=== PATIENT | female | born 1990 | race Caucasian/White ===

== ENCOUNTER 2017-06-03 17:59 | Emergency (ER) | payer MEDICAID ==
[2017-06-03] MEDS ORDERED: TERC.4%V VAGINAL (19:25)
--- NOTE | 2017-06-03 19:25 | PD ---
HPI Chief Complaint Abdominal pain pelvic pressure vaginal discharge Date Seen: Jun 03, 2017 Time Seen: 19:20 Travel History International Travel<30 Days: No Contact w/Intl Traveler<30Days: No Known Affected Area: No History of Present Illness HPI Patient is 26-year-old white female at 33 weeks sees a kettle cleaner in [place] for care and presents complaining of abdominal pain and pelvic pressure. Also complains of a yellow thickish discharge. She denies itching or odor. heart tones are reactive and she is not agustín regularly Weeks Gestation: 33 Para: 0 : 1 History Social History Alcohol Use: No Tobacco Use: No Substance Abuse: No Review of Systems General / Constitutional: No: Fever, Weight Gain, Chills, Other Eyes: No: Diploplia, Blurred Vision, Visual changes, Pain, Photophobia HENT: No: Headaches, Vertigo, Lightheadedness Cardiovascular: No: Irregular Rhythm, Chest Pain or Discomfort, Palpitations, Tachycardia, Syncope, Varicosities, Edema, Cyanosis Respiratory: No: Cough, Short of Breath, Other Gastrointestinal: Abdominal Pain, No: Nausea, Vomiting, Diarrhea Genitourinary: Discharge, No: Decreased Urinary Output, Oliguria Musculoskeletal: No: Limited ROM, Weakness, Cramping, Edema, Pain Skin: No Rash, No Itching, No Dryness, No Lumps, No Change in Pigmentation, No Change in Nails, No Alopecia, No Lesions Neurologic: No: Weakness, Dizziness, Syncope, Focal Abnormalities, Coordination Problem, Headache, Slurred Speech, Seizures Psychiatric: No: Depression, Suicidal Ideations, Homicidal Ideation Endocrine: No: Heat Intolerance, Cold Intolerance, Polydipsia, Polyuria, Other Physical Exam Narrative GENERAL: Well-nourished, well-developed patient. SKIN: Warm and dry. HEAD: Normocephalic and atraumatic. EYES: No scleral icterus. No injection or drainage. ENT: No nasal drainage noted. Mucous membranes pink. Airway patent. NECK: Supple, trachea midline. No JVD. CARDIOVASCULAR: Regular rate and rhythm without murmurs, gallops, or rubs. RESPIRATORY: Breath sounds equal bilaterally. No accessory muscle use. BREASTS: Bilateral exam showed no masses , no retractions, no nipple discharge. ABDOMEN/GI: Abdomen soft, non-tender, bowel sounds present, no rebound, no guarding Gravid to [-33] weeks size Fundal Height: [33-] GENITOURINARY: External Genitalia: intact and normal in appearance Speculum exam done--yeast seen on exam of the vagina with a classic cottage cheese type discharge Cervix: [Posterior-] Dilatation: [Closed-] Effacement: [-Thick] Station: [-3] ] Membranes: [intact ] Uterine Contractions: [No regular contraction-] FHT's: Category: [-1] Baseline: [-133] Reactive: [-R] Variability: [-mod] Decels: [-0] EXTREMITIES: No cyanosis or edema. BACK: Nontender without obvious deformity. No CVA tenderness. NEUROLOGICAL: Awake and alert. Motor and sensory grossly within normal limits. Five out of 5 muscle strength in all muscle groups. Normal speech. MDM Interpretation(s) Patient is 26-year-old white female at 33 weeks who sees a kettle cleaner at [place] for care presents complaining of abdominal pain pelvic pressure and a vaginal discharge. On exam this is a classic yeast infection in the vagina and this was very obvious on speculum exam, heart tones are reactive she is having no regular contractions cervix is closed Plan Plan Terazol 7 cream nightly for a week Diagnosis Diagnosis: Primary Impression: Monilial vulvovaginitis Additional Impression: 33 weeks gestation of Disposition: 01 DISCHARGE HOME Condition: Stable Scripts Terconazole Vaginal Cream (Terazol 7 Vaginal Cream) 0.4 % Cream 1 APPL VAGINAL HS for Fungal Infection for 7 Days, #45 GM 0 Refills 1 applicatorful intravaginally x 7 nights Prov: Jamie Sandoval II, MD 06/03/17 Jamie Sandoval II, MD Jun 03, 2017 19:25
== END 2017-06-03 19:31 | disposition home or self-care (01) ==
LOC: HOBED 17:59
DX: O98.813 Other maternal infectious and parasitic diseases complicating pregnancy, third trimester (principal); B37.3 Candidiasis of vulva and vagina; Z3A.33 33 weeks gestation of pregnancy
CPT/HCPCS: 59025

== ENCOUNTER 2017-07-02 22:18 | Emergency (ER) | payer MEDICAID ==
[~2017-07-02 22:18] MED LIST: TERC.4%V VAGINAL
--- NOTE | 2017-07-02 23:52 | PD ---
HPI Date Seen: July 02, 2017 Travel History International Travel<30 Days: No Contact w/Intl Traveler<30Days: No Known Affected Area: No History of Present Illness HPI 26-year-old G1 at 37 weeks and 3 days by 15 week ultrasound with estimated due date of 07/20/2017 here today for abdominal pressure and hip pain, she states she may feel contractions every 10 minutes or so, denies leakage of fluid, vaginal bleeding, endorses movement. Has no other complaints. History Past Medical History Narrative Medical Tobacco use Past Surgical History Narrative Surgical Tonsils and adenoids Family History Narrative Family History Noncontributory Social History Narrative Social History Positive tobacco use, denies alcohol or drug use. Allergies-Medications Comments Morphine Home Meds Discontinued Scripts Terconazole Vaginal Cream (Terazol 7 Vaginal Cream) 0.4 % Cream, 1 APPL VAGINAL HS for Fungal Infection for 7 Days, #45 GM 0 Refills 1 applicatorful intravaginally x 7 nights Prov:Jamie Sandoval II, MD 06/03/17 Narrative Medication vitamins Review of Systems General / Constitutional: No: Fever, Weight Gain, Chills, Other Eyes: No: Diploplia, Blurred Vision, Visual changes, Pain, Photophobia HENT: No: Headaches, Vertigo, Lightheadedness Cardiovascular: No: Irregular Rhythm, Chest Pain or Discomfort, Palpitations, Tachycardia, Syncope, Varicosities, Edema, Cyanosis Respiratory: No: Cough, Short of Breath, Other Gastrointestinal: No: Nausea, Vomiting, Diarrhea Genitourinary: No: Decreased Urinary Output, Oliguria Musculoskeletal: No: Limited ROM, Weakness, Cramping, Edema, Pain Skin: No Rash, No Itching, No Dryness, No Lumps, No Change in Pigmentation, No Change in Nails, No Alopecia, No Lesions Neurologic: No: Weakness, Dizziness, Syncope, Focal Abnormalities, Coordination Problem, Headache, Slurred Speech, Seizures Psychiatric: No: Depression, Suicidal Ideations, Homicidal Ideation Endocrine: No: Heat Intolerance, Cold Intolerance, Polydipsia, Polyuria, Other Physical Exam Blood pressure 139/77, pulse 84, respiratory rate 18 Narrative GENERAL: Well-nourished, well-developed patient. SKIN: Warm and dry. HEAD: Normocephalic and atraumatic. EYES: No scleral icterus. No injection or drainage. ENT: No nasal drainage noted. Mucous membranes pink. Airway patent. NECK: Supple, trachea midline. No JVD. CARDIOVASCULAR: Regular rate and rhythm without murmurs, gallops, or rubs. RESPIRATORY: Breath sounds equal bilaterally. No accessory muscle use. BREASTS: Bilateral exam showed no masses , no retractions, no nipple discharge. ABDOMEN/GI: Abdomen soft, non-tender, bowel sounds present, no rebound, no guarding Gravid GENITOURINARY: Deferred by myself, by nursing at time of presentation 1-2 cm/70% effaced and -1 station Membranes: Amnisure negative Uterine Contractions: Occurring every 8-10 minutes FHT's: 140s, moderate variability, accelerations present no decelerations EXTREMITIES: No cyanosis or edema. BACK: Nontender without obvious deformity. No CVA tenderness. NEUROLOGICAL: Awake and alert. Motor and sensory grossly within normal limits.. Normal speech. Data Data Vital Signs Reviewed: Yes Labs UA only significant for blood, and Amnisure negative MDM Medical Record Reviewed: Yes Plan 1. Pelvic pain: Likely musculoskeletal, contractions are irregular and not consistent with active labor, urine showed no signs of infection, amnisure is negative, discussed labor precautions, kick counts provided her reassurance today. Recommended heating pads, stretching, plan will be for discharge and she will return to office this for routine care. Disposition: DISCHARGE HOME Condition: Arsen Peterson MD July 02, 2017 23:52
--- NOTE | 2017-07-03 00:18 | PD ---
HPI Travel History International Travel<30 Days: No Contact w/Intl Traveler<30Days: No Known Affected Area: No Allergies-Medications Home Meds Discontinued Scripts Terconazole Vaginal Cream (Terazol 7 Vaginal Cream) 0.4 % Cream, 1 APPL VAGINAL HS for Fungal Infection for 7 Days, #45 GM 0 Refills 1 applicatorful intravaginally x 7 nights Prov:Jamie Sandoval II, MD 06/03/17 Physical Exam Narrative GENERAL: Well-nourished, well-developed patient. SKIN: Warm and dry. HEAD: Normocephalic and atraumatic. EYES: No scleral icterus. No injection or drainage. ENT: No nasal drainage noted. Mucous membranes pink. Airway patent. NECK: Supple, trachea midline. No JVD. CARDIOVASCULAR: Regular rate and rhythm without murmurs, gallops, or rubs. RESPIRATORY: Breath sounds equal bilaterally. No accessory muscle use. BREASTS: Bilateral exam showed no masses , no retractions, no nipple discharge. ABDOMEN/GI: Abdomen soft, non-tender, bowel sounds present, no rebound, no guarding Gravid to [-] weeks size Fundal Height: [-] GENITOURINARY: External Genitalia: intact and normal in appearance BUS glands: [-] Cervix: [-] Dilatation: [-] Effacement: [-] Station: [-] Presentation: [-] Membranes: [intact or ruptured] Uterine Contractions: [-] FHT's: Category: [-] Baseline: [-] Reactive: [-] Variability: [-] Decels: [-] EXTREMITIES: No cyanosis or edema. BACK: Nontender without obvious deformity. No CVA tenderness. NEUROLOGICAL: Awake and alert. Motor and sensory grossly within normal limits. Five out of 5 muscle strength in all muscle groups. Normal speech. Data Data Orders Orders Attending Discharge Order (07/02/17 ) MDM Diagnosis Diagnosis: Primary Impression: Feeling pelvic pressure in in third trimester, antepartum Additional Impression: 37 weeks gestation of Disposition: 01 DISCHARGE HOME Condition: Stable Patient Instructions: General Instructions, Having Your Baby: The Labor Process (GEN), Movement (ED), Abdominal Pain in (ED) Departure Forms: Tests/Procedures Jamie Sandoval II, MD July 03, 2017 00:17
== END 2017-07-03 00:54 | disposition home or self-care (01) ==
LOC: HOBED 22:18
DX: O26.893 Other specified pregnancy related conditions, third trimester (principal); R10.2 Pelvic and perineal pain; Z3A.37 37 weeks gestation of pregnancy
CPT/HCPCS: 59025; 84112

== ENCOUNTER 2017-07-12 12:59 | Inpatient (IN) | payer MEDICAID ==
[2017-07-12] VITALS (13 sets, daily range): BP systolic 103–154; BP diastolic 58–94; PULSE 70–119; RESP 16–18; TEMP 98.1–98.3
[~2017-07-12] VITALS: Ht 162.6 cm; Wt 98.0 kg
--- NOTE | 2017-07-12 13:51 | HHI.HP ---
HPI Chief Complaint Evaluation for preeclampsia Date Seen: July 12, 2017 Travel History International Travel<30 Days: No Contact w/Intl Traveler<30Days: No History of Present Illness HPI 26-year-old G1 at 38 weeks and 6 days by 15 week ultrasound with estimated due date of 07/20/2017. She was seen in the outpatient setting by myself for routine OB visit, she had mildly elevated blood pressure 148/76, 2+ protein, she had no signs or symptoms of preeclampsia, denies increasing abdominal pressure, endorses movement, denies contractions, bleeding or loss of fluid. Her has been uncomplicated thus far other than tobacco use and Rubella non immune status History Past Medical History Narrative Medical Tobacco use Obstetric History Obstetric History G1 Past Surgical History Narrative Surgical Tonsils and adenoids Family History Narrative Family History No pertinent positives Social History Alcohol Use: No Tobacco Use: Yes Substance Abuse: No Allergies-Medications (Allergen,Severity, Reaction): Coded Allergies: morphine (Verified Allergy, Mild, 07/12/17) Narrative Medication vitamin Review of Systems General / Constitutional: No: Fever, Weight Gain, Chills, Other Eyes: No: Diploplia, Blurred Vision, Visual changes, Pain, Photophobia HENT: No: Headaches, Vertigo, Lightheadedness Cardiovascular: No: Irregular Rhythm, Chest Pain or Discomfort, Palpitations, Tachycardia, Syncope, Varicosities, Edema, Cyanosis Respiratory: No: Cough, Short of Breath, Other Gastrointestinal: No: Nausea, Vomiting, Diarrhea Genitourinary: No: Decreased Urinary Output, Oliguria Musculoskeletal: No: Limited ROM, Weakness, Cramping, Edema, Pain Skin: No Rash, No Itching, No Dryness, No Lumps, No Change in Pigmentation, No Change in Nails, No Alopecia, No Lesions Neurologic: No: Weakness, Dizziness, Syncope, Focal Abnormalities, Coordination Problem, Headache, Slurred Speech, Seizures Psychiatric: No: Depression, Suicidal Ideations, Homicidal Ideation Endocrine: No: Heat Intolerance, Cold Intolerance, Polydipsia, Polyuria, Other Physical Exam Narrative GENERAL: Well-nourished, well-developed patient. SKIN: Warm and dry. HEAD: Normocephalic and atraumatic. EYES: No scleral icterus. No injection or drainage. ENT: No nasal drainage noted. Mucous membranes pink. Airway patent. NECK: Supple, trachea midline. No JVD. CARDIOVASCULAR: Regular rate and rhythm without murmurs, gallops, or rubs. RESPIRATORY: Breath sounds equal bilaterally. No accessory muscle use. ABDOMEN/GI: Abdomen soft, non-tender, bowel sounds present, no rebound, no guarding Gravid GENITOURINARY: External Genitalia: intact and normal in appearance Cervix 4 cm/50 vision effaced/-2 station/medium consistency/midposition ( done in the office) FHT's: 120s, moderate variability, accelerations present, no decelerations Tocometry: Rare contractions EXTREMITIES: No cyanosis or edema. BACK: Nontender without obvious deformity. No CVA tenderness. NEUROLOGICAL: Awake and alert. Motor and sensory grossly within normal limits. Normal speech. Caprini VTE Risk Assessment Caprini VTE Risk Assessment: Mod/High Risk (score >= 2) Caprini Risk Assessment Model Point Value = 1 Point Value = 2 Point Value = 3 Point Value = 5 Age 41-60 Minor surgery BMI > 25 kg/m2 Swollen legs Varicose veins or History of unexplained or recurrent spontaneous Oral contraceptives or hormone replacement Sepsis (< 1 month) Serious lung disease, including pneumonia (< 1 month) Abnormal pulmonary function Acute myocardial infarction Congestive heart failure (< 1 month) History of inflammatory bowel disease Medical patient at bed rest Age 61-74 Arthroscopic surgery Major open surgery (> 45 min) Laparoscopic surgery (> 45 min) Malignancy Confined to bed (> 72 hours) Immobilizing plaster cast Central venous access Age >= 75 History of VTE Family history of VTE Factor V Leiden Prothrombin [id number] Lupus anticoagulant Anticardiolipin antibodies Elevated serum homocysteine Heparin-induced thrombocytopenia Other congenital or acquired thrombophilia Stroke (< 1 month) Elective arthroplasty Hip, pelvis, or leg fracture Acute spinal cord injury (< 1 month) Prophylaxis Regimen Total Risk Factor Score Risk Level Prophylaxis Regimen 0-1 Low Early ambulation 2 Moderate Order ONE of the following: *Sequential Compression Device (SCD) *Heparin 5000 units SQ BID 3-4 Higher Order ONE of the following medications: *Heparin 5000 units SQ TID *Enoxaparin/Lovenox 40 mg SQ daily (WT < 150 kg, CrCl > 30 mL/min) *Enoxaparin/Lovenox 30 mg SQ daily (WT < 150 kg, CrCl > 10-29 mL/min) *Enoxaparin/Lovenox 30 mg SQ BID (WT < 150 kg, CrCl > 30 mL/min) AND/OR *Sequential Compression Device (SCD) 5 or more Highest Order ONE of the following medications: *Heparin 5000 units SQ TID (Preferred with Epidurals) *Enoxaparin/Lovenox 40 mg SQ daily (WT < 150 kg, CrCl > 30 mL/min) *Enoxaparin/Lovenox 30 mg SQ daily (WT < 150 kg, CrCl > 10-29 mL/min) *Enoxaparin/Lovenox 30 mg SQ BID (WT < 150 kg, CrCl > 30 mL/min) AND *Sequential Compression Device (SCD) Data Data Vital Signs Reviewed: Yes Orders Blood pressure range since presentation: 128-149/68-82. Group B Strep: Negative Labs labs: 01/10/2017 Blood type B positive, antibody negative, hemoglobin 13.3, Varicella immune, rubella nonimmune, VDRL nonreactive, urine culture negative, hepatitis B surface antigen negative, HIV negative, urine drug screen negative, sickle cell screen negative, TSH 1.28, gonorrhea and chlamydia negative, cystic fibrosis screen negative 04/16/2017 Repeat hemoglobin 12.7, one-hour Glucola 95 06/21/2017: GBS negative. Assessment/Plan Assessment and Plan 26-year-old G1 at 38 weeks and 6 days by 15 week ultrasound ([facility] of 07/20/2017 ) 1. IUP: Category 1 tracing -GBS negative, EFW 7-1/2-8 pounds, cephalic by exam today - EFW (06/28) done for S>D = 3046g (67%), GUSTAVO 14cm 2. Rule out preeclampsia/gestational hypertension: By blood pressure criteria she likely meets gestational hypertension criteria, HELLP labs and protein creatinine ratio pending. Will review and discuss plan of care with patien 3. Tobacco use: discussed cessation antepartum 4. RNI: vaccine . Arsen Moser MD July 12, 2017 13:51
[2017-07-12 15:32] LABS: AUTOMATED NEUTROPHIL # 9.6 TH/MM3 (1.8-7.7); BASOPHIL % 0.2 % (0.0-2.0); EOSINOPHIL # 0.1 TH/MM3 (0-0.4); EOSINOPHIL % 0.6 % (0.0-4.0); HEMATOCRIT 37.7 % (35.0-46.0); HEMOGLOBIN 12.7 GM/DL (11.6-15.3); LYMPH % 18.1 % (9.0-44.0); LYMPHOCYTE # 2.3 TH/MM3 (1.0-4.8); MEAN CELL VOLUME 91.5 FL (80.0-100.0); MEAN CORPUSCULAR HGB CONC 33.8 % (32.0-36.0); MEAN PLATELET VOLUME 10.5 FL (7.0-11.0); MONO % 4.8 % (0.0-8.0); MONOCYTE # 0.6 TH/MM3 (0-0.9); NEUT % 76.3 % (16.0-70.0); PLATELET COUNT 171 TH/MM3 (150-450); RED BLOOD COUNT 4.11 MIL/MM3 (4.00-5.30); RED CELL DISTRIBUTION WIDTH 13.1 % (11.6-17.2); WHITE BLOOD COUNT 12.6 TH/MM3 (4.0-11.0)
[2017-07-12 15:50] LABS: ALBUMIN 2.5 GM/DL (3.4-5.0); ALT (GPT) 11 U/L (10-53); AST (GOT) 14 U/L (15-37); BICARBONATE 20.4 MEQ/L (21.0-32.0); BLOOD UREA NITROGEN 8 MG/DL (7-18); CALCIUM 8.1 MG/DL (8.5-10.1); CHLORIDE 109 MEQ/L (98-107); CREATININE 0.52 MG/DL (0.50-1.00); GLOMERULAR FILTRATION RATE 145 ML/MIN (>89); GLUCOSE,RANDOM 70 MG/DL (74-106); SODIUM (NA) 142 MEQ/L (136-145)
[2017-07-12 15:52] LABS: ALKALINE PHOSPHATASE 151 U/L (45-117); TOTAL BILIRUBIN ADULT 0.2 MG/DL (0.2-1.0); TOTAL PROTEIN 6.3 GM/DL (6.4-8.2)
[2017-07-12] MEDS ORDERED: LACTATED RINGER'S 1000 ML INJ 1,000 ML IV PRN (16:02)
[2017-07-12] MEDS ORDERED: OXYTOCIN 30 UNITS-500ML PREMIX 500 ML IV ONE (16:15)
[2017-07-12] MEDS ORDERED: LIDOCAINE HCL 1% 50 ML VIAL I-DERMAL PRN (16:15)
[2017-07-12] MEDS ORDERED: DOCUSATE SODIUM 100 MG CAP PO PRN (16:15)
[2017-07-12] MEDS ORDERED: MINERAL OIL 10 ML VIAL TOPICAL PRN (16:15)
[2017-07-12] MEDS ORDERED: CITRIC ACID-SODIUM CITRATE LIQ 30 ML UDC PO SCH (16:15)
[2017-07-12] MEDS ORDERED: SODIUM CHLORIDE 0.9% FLUSH 10 ML FLUSH IV FLUSH PRN ×2 (16:15)
[2017-07-12] MEDS ORDERED: ONDANSETRON ODT 4 MG TAB PO PRN (16:15)
[2017-07-12] MEDS ORDERED: MISOPROSTOL 100 MCG TAB VAGINAL PRN (16:15)
[2017-07-12] MEDS ORDERED: OXYTOCIN 30 UNITS-500ML PREMIX 500 ML IV PRN (16:15)
[2017-07-12] MEDS ORDERED: SODIUM CHLORID 0.9% 500 ML INJ 500 ML IV PRN (16:15)
[2017-07-12] MEDS ORDERED: LIDOCAINE HCL 1% 50 ML VIAL INFIL PRN (16:15)
[2017-07-12] MEDS ORDERED: SODIUM CHLOR 0.9% 1000 ML INJ 1,000 ML IV PRN (16:22)
[2017-07-12] MEDS: LACTATED RINGER'S 1000 ML INJ 1,000 ML IV SCH (17:00)
[2017-07-12] MEDS ORDERED: MISOPROSTOL 25 MCG TAB VAGINAL PRN (17:00)
--- NOTE | 2017-07-12 17:16 | HHI.PR ---
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 Denies headache, blurred vision or epigastric pain. O: Blood pressure range: See H&P Exam: Deferred FHTs: 130s, moderate variability, accelerations present, no decelerations TOCO: Rare contractions A/P. 26-year-old G1 at 38 weeks and 6 days by 15 week ultrasound ([facility] of 07/20/2017 ) 1. IUP: Category 1 tracing -GBS negative, EFW 7-1/2-8 pounds, cephalic by exam today - EFW (06/28) done for S>D = 3046g (67%), GUSTAVO 14cm -Male fetus, desires circ (has not paid) 2. Preeclampsia without severe features: Based on mild range blood pressures and a protein creatinine ratio of 0.66. Continue to trend blood pressures, start magnesium for any severe features, strict I's and O's. 3. Induction of labor: Secondary to #2, Marin score 5-6, discussed miso 25 mcg vaginally every 4 hours for cervical ripening, will begin Pitocin when favorable, we will allowed to eat if heart rate reassuring following 1-2 hours status post placement of misoprostol. 4. Tobacco use: discussed cessation antepartum 5. RNI: vaccine . Arsen Moser MD July 12, 2017 17:16
[2017-07-12] MEDS ORDERED: SODIUM CHLORIDE 0.9% FLUSH 10 ML FLUSH IV FLUSH SCH (21:00)
[2017-07-13] VITALS (65 sets, daily range): BP systolic 109–162; BP diastolic 59–100; PULSE 67–196; RESP 18; TEMP 98.2–98.4; O2SAT 100
[2017-07-13] MEDS: LACTATED RINGER'S 1000 ML INJ 1,000 ML IV SCH ×3 (05:22→07:37)
[2017-07-13] MEDS ORDERED: fentaNYL 2MCG-BUPIV 0.125% INJ 100 ML ONE (06:21)
[2017-07-13] MEDS ORDERED: BUPIVACAINE HCL PF 0.25% 10 ML VIAL ONE (06:28)
[2017-07-13] MEDS: SODIUM CHLORIDE 0.9% FLUSH 10 ML FLUSH IV FLUSH SCH ×2 (07:07→09:00)
[2017-07-13] MEDS ORDERED: DO NOT ADMINISTER ANTICOAGULANTS PRN (08:15)
[2017-07-13] MEDS ORDERED: NO SYSTEM NARCOTICS PRN (08:15)
[2017-07-13] MEDS ORDERED: fentaNYL 2MCG-BUPIV 0.125% 100 ML EPIDURAL PRN (08:15)
[2017-07-13] MEDS ORDERED: ePHEDrine/NS 25 MG/5 ML SYRINGE IV PUSH PRN (08:15)
[2017-07-13] MEDS ORDERED: LIDOCAINE HCL 1% PF 30 ML VIAL ONE (08:25)
--- NOTE | 2017-07-13 08:31 | HHI.PR ---
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 Denies headache, blurred vision or epigastric pain. O: BP range since 7am: 134-150/72-94 Exam: Deferred FHTs: 130s, moderate variability, accelerations present, early decelerations TOCO: Contractions every 3 minutes A/P. 26-year-old G1 at 39 weeks and 0 days by 15 week ultrasound ([facility] of 07/20/2017 ) 1. IUP: Category 1 tracing -GBS negative, EFW 7-1/2-8 pounds, cephalic by exam today - EFW (06/28) done for S>D = 3046g (67%), GUSTAVO 14cm -Male fetus, desires circ (has not paid) 2. Preeclampsia without severe features: Based on mild range blood pressures and a protein creatinine ratio of 0.66. Continue to trend blood pressures, start magnesium for any severe features, strict I's and O's. 3. Induction of labor: Secondary to #2, status post SROM at 4 AM, clear fluid, continue Pitocin, making change anticipate vaginal delivery. 4. Tobacco use: discussed cessation antepartum 5. RNI: vaccine . Arsen Moser MD July 13, 2017 08:31
[2017-07-13] MEDS ORDERED: IBUP-232 PO (10:05)
--- NOTE | 2017-07-13 10:05 | HHI.DCPOC ---
Discharge Care Plan Diagnosis: (1) Normal vaginal delivery (2) Preeclampsia (3) 38 weeks gestation of Your Health Problems Are: Vaginal delivery Report Symptoms to Your Doctor -Temperature above 100.5 degrees -Redness, of incision or excessive or foul smelling drainage -Unusual pain or calf pain -Increased vaginal bleeding -Painful or difficulty urinating -Feelings of extreme sadness or anxiety after 2 weeks Goals to Promote Your Health * To prevent worsening of your condition and complications * To maintain your health at the optimal level Directions to Meet Your Goals Take your medications as prescribed Follow your dietary instruction Follow activity as directed Ensure plenty of rest for recovery Drink fluids for hydration Keep your appointments as scheduled Take your immunizations and boosters as scheduled If your symptoms worsen call your PCP, if no PCP go to Urgent Care Center or Emergency Room Smoking is Dangerous to Your Health. Avoid second hand smoke Call the 24-hour crisis hotline for domestic abuse at Arsen Moser MD July 13, 2017 10:05
--- NOTE | 2017-07-13 10:08 | PD.OB.DELI ---
Weeks gestation: 39 Pt started active labor?: No Medical induction of labor?: Yes Artificial rupture of membrane: No Anesthesia: Epidural, Lidocaine local to perineum (10 cc of 1% lidocaine without epinephrine) Vaginal Delivery: Normal, Spontaneous Presentation: Occiput anterior, Vertex Nuchal Cord: None Delayed cord clamping (45 sec): Yes Shoulder Dystocia: Other (No dystocia) : Male, Single Delivery date: July 13, 2017 Delivery time: 09:28 One Minute : 9 Five Minute : 9 Placenta: Spontaneous delivery, Manual removal (Gently grasp the lower edge of the placenta), Intact, 3 vessel cord Laceration: 2 deg Repair: Vicryl running Estimated blood loss: 400 cc Additional Information Diagnoses: 1. Intrauterine 39 weeks and 0 days 2. Preeclampsia without severe features 3. Tobacco use Counts: Correct at the end of the procedure Complications: None Description of procedure: The patient began pushing after the bed was broken down, the head upon was allowed to restitute naturally for delivery with a supported perineum, with gentle downward guidance the anterior shoulder was delivered followed by gentle upper guidance for the posterior shoulder, the torso and lower extremities were delivered with ease and with continued perineal support. The had spontaneous cry and was placed on mom's abdomen for skin to skin contact, we allowed delayed cord clamping. After the cord was clamped and cut, cord blood was obtained. Pitocin was bolused and with fundal massage the placenta was delivered, there is minimal uterine bleeding and uterus was firm. The perineum, vagina and cervix were inspected and found a second-degree laceration which was repaired as above, she had some abrasions around the periurethral area that were hemostatic and left to heal w/o repair. The patient tolerated the procedure well and was left in the birthing suite with her . Arsen Moser MD July 13, 2017 10:08
[2017-07-13] MEDS ORDERED: BENZOCAINE 20% TOPICAL SPRAY 60 ML CAN TOPICAL PRN (10:15)
[2017-07-13] MEDS ORDERED: ALUMINUM/MAGNESIUM/SIMETH 30 ML CUP PO PRN (10:15)
[2017-07-13] MEDS ORDERED: oxyCODONE/ACETAMINOPHEN 5 MG/325 MG TAB PO PRN ×2 (10:15)
[2017-07-13] MEDS ORDERED: SODIUM CHLORIDE 0.9% FLUSH 10 ML FLUSH IV FLUSH PRN (10:15)
[2017-07-13] MEDS ORDERED: WITCH HAZEL 50%/GLYCERIN 12.5% 40 PAD JAR TOPICAL PRN (10:15)
[2017-07-13] MEDS ORDERED: ONDANSETRON ODT 4 MG TAB PO PRN (10:15)
[2017-07-13] MEDS ORDERED: ACETAMINOPHEN 325 MG TAB PO PRN (10:15)
[2017-07-13] MEDS ORDERED: DOCUSATE SODIUM 50 MG/SENNA 8.6 MG TAB PO PRN (10:15)
[2017-07-13] MEDS ORDERED: OXYTOCIN 30 UNITS-500ML PREMIX 500 ML IV SCH (10:30)
[2017-07-13] MEDS: IBUPROFEN 800 MG TAB PO PRN ×2 (11:06→19:47)
[2017-07-13] MEDS ORDERED: DIPHTH/TETANUS/ACEL PERTUSSIS (BOOSTER) 0.5 ML VIAL/PFS IM ONE (16:00)
[2017-07-13] MEDS ORDERED: MEASLES, MUMPS, RUBELLA VACCINE 0.5 ML VIAL SQ ONE (16:00)
[2017-07-13] MEDS ORDERED: SODIUM CHLORIDE 0.9% FLUSH 10 ML FLUSH IV FLUSH SCH (21:00)
[2017-07-13] MEDS ORDERED: ZOLPIDEM TARTRATE 5 MG TAB PO PRN (21:00)
--- NOTE | 2017-07-14 09:33 | HHI.OB ---
Subjective Post Day: 1 Remarks doing well, pain controlled, VB < menses, no complaints, denies JOHNSON, blurry vision, epigastric pain or RUQ pain. Objective Vitals/I&O Vital Signs Date Time Temp Pulse Resp B/P (MAP) Pulse Ox O2 Delivery O2 Flow Rate FiO2 07/13/17 20:00 98.3 79 18 143/77 (99) 07/13/17 12:20 98.2 87 18 142/83 (102) 07/13/17 11:30 89 135/79 (97) 07/13/17 11:15 111 121/75 (90) 07/13/17 11:07 18 07/13/17 11:00 93 136/85 (102) 07/13/17 10:55 18 07/13/17 10:45 89 129/86 (100) 07/13/17 10:40 18 07/13/17 10:31 89 130/74 (92) 07/13/17 10:16 196 148/76 (100) 07/13/17 10:13 18 07/13/17 10:06 18 07/13/17 10:01 98 131/73 (92) Objective Remarks GENERAL: Well-nourished, well-developed patient. CARDIOVASCULAR: Regular rate and rhythm without murmurs, gallops, or rubs. RESPIRATORY: Breath sounds equal bilaterally. No accessory muscle use. ABDOMEN/GI: Abdomen soft, non-tender. Fundus: Firm, non-tender at umbilicus. GENITOURINARY: Light to moderate bleeding. EXTREMITIES: No cyanosis or edema, non-tender, without signs of DVT. Medications and IVs Current Medications Medications (Trade) Dose Ordered Sig/Jonathan Route Start Time Stop Time Status Last Admin (NS Flush) 2 ml BID IV FLUSH 07/13/17 21:00 (NS Flush) 2 ml UNSCH PRN IV FLUSH 07/13/17 10:15 (Tylenol) 650 mg Q4H PRN PO 07/13/17 10:15 (Motrin) 800 mg Q8H PRN PO 07/13/17 10:15 07/13/17 19:47 (Americaine 20% Top Spr) 1 spray Q4H PRN TOPICAL 07/13/17 10:15 (Tucks Pads) 1 applic QID PRN TOPICAL 07/13/17 10:15 (Fernanda-Colace) 2 tab Q12H PRN PO 07/13/17 10:15 (Ambien) 5 mg HS PRN PO 07/13/17 21:00 (Mag-Al Plus Susp Liq) 15 ml Q8H PRN PO 07/13/17 10:15 (Zofran Odt) 4 mg Q6H PRN PO 07/13/17 10:15 Assessment/Plan Assessment and Plan 26-year-old s/p at 38w6d 1. PPD #1: AF, VSS, discussed expectations, precautions and follow up , pt desires d/c home today, plan is for d/c home today. - male , desires circ, did not pay yet, to call office and discuss this and can be done as an outpatient. - Bottle feeding. 2. PREC w/o severe features: BPs mostly normotensive since delivery, discussed PREC precautions, FU 1 week in office 3. Tobacco use: discussed cessation antepartum 4. RNI: vaccine . Arsen Moser MD July 14, 2017 09:33
[2017-07-14] MEDS: IBUPROFEN 800 MG TAB PO PRN ×2 (11:29→21:45)
--- NOTE | 2017-07-15 08:59 | HHI.OB ---
Subjective Post Day: 2 Remarks PPD#2; Stable,cleared for discharge Objective Objective Remarks GENERAL: Well-nourished, well-developed patient. CARDIOVASCULAR: Regular rate and rhythm without murmurs, gallops, or rubs. RESPIRATORY: Breath sounds equal bilaterally. No accessory muscle use. ABDOMEN/GI: Abdomen soft, non-tender. Fundus: Firm, non-tender at umbilicus. GENITOURINARY: Light to moderate bleeding. EXTREMITIES: No cyanosis or edema, non-tender, without signs of DVT. Medications and IVs Current Medications Medications (Trade) Dose Ordered Sig/Jonathan Route Start Time Stop Time Status Last Admin (NS Flush) 2 ml BID IV FLUSH 07/13/17 21:00 (NS Flush) 2 ml UNSCH PRN IV FLUSH 07/13/17 10:15 (Tylenol) 650 mg Q4H PRN PO 07/13/17 10:15 (Motrin) 800 mg Q8H PRN PO 07/13/17 10:15 07/14/17 21:45 (Americaine 20% Top Spr) 1 spray Q4H PRN TOPICAL 07/13/17 10:15 07/14/17 21:46 (Tucks Pads) 1 applic QID PRN TOPICAL 07/13/17 10:15 07/14/17 21:46 (Fernanda-Colace) 2 tab Q12H PRN PO 07/13/17 10:15 07/14/17 21:46 (Ambien) 5 mg HS PRN PO 07/13/17 21:00 (Mag-Al Plus Susp Liq) 15 ml Q8H PRN PO 07/13/17 10:15 (Zofran Odt) 4 mg Q6H PRN PO 07/13/17 10:15 Assessment/Plan Assessment and Plan 26-year-old s/p at 38w6d 1. PPD #1: AF, VSS, discussed expectations, precautions and follow up , pt desires d/c home today, plan is for d/c home today. - male , desires circ, did not pay yet, to call office and discuss this and can be done as an outpatient. - Bottle feeding. 2. PREC w/o severe features: BPs mostly normotensive since delivery, discussed PREC precautions, FU 1 week in office 3. Tobacco use: discussed cessation antepartum 4. RNI: vaccine . 07/15/17; PPD#2, stable for discharge today Discharge Planning routine Cory Lamas MD July 15, 2017 08:59
[2017-07-15] MEDS ORDERED: MEASLES, MUMPS, RUBELLA VACCINE 0.5 ML VIAL SQ ONE (11:00)
== END 2017-07-15 11:23 | disposition home or self-care (01) | DRG 775 ==
LOC: HOBED 12:59 → H2EB 16:35 → H1EA 07-13 11:46 → UNDODISIN 07-14 14:13
PROVIDERS: ADMIT Obstetrics & Gynecology; ATTEND Obstetrics & Gynecology
PROC: 3E0P7VZ Introduction of Hormone into Female Reproductive, Via Natural or Artificial Opening (ICD-10-PCS; 2017-07-12)
PROC: 3E033VJ Introduction of Other Hormone into Peripheral Vein, Percutaneous Approach (ICD-10-PCS; 2017-07-12)
PROC: 10E0XZZ Delivery of Products of Conception, External Approach (ICD-10-PCS; principal; 2017-07-13)
PROC: 0KQM0ZZ Repair Perineum Muscle, Open Approach (ICD-10-PCS; 2017-07-13)
DX: O14.94 Unspecified pre-eclampsia, complicating childbirth (principal); O99.334 Smoking (tobacco) complicating childbirth; O66.0 Obstructed labor due to shoulder dystocia; O71.9 Obstetric trauma, unspecified; Z37.0 Single live birth; Z3A.38 38 weeks gestation of pregnancy; Z88.5 Allergy status to narcotic agent
CPT/HCPCS: 36415; 59025; 80053; 80307; 82570; 84112; 84156; 85025; 86850; 86900; 86901; 90707; J2590; J3010; J7120